=== PATIENT | female | born 1990 | race African-American/Black ===

== ENCOUNTER 2017-10-29 12:49 | Emergency (ER) | payer OTHER, SELFPAY | END 2017-10-29 13:20 | disposition home or self-care (01) | LOC: ERS 12:49 | DX: B86 Scabies (principal); D64.9 Anemia, unspecified | CPT/HCPCS: 99282 ==

== ENCOUNTER 2017-11-04 06:45 | Emergency (ER) | payer SELFPAY | END 2017-11-04 07:18 | disposition home or self-care (01) | LOC: ERS 06:45 | DX: B86 Scabies (principal); D64.9 Anemia, unspecified | CPT/HCPCS: 99282 ==

== ENCOUNTER 2018-03-11 15:54 | Emergency (ER) | payer BC, SELFPAY ==
[2018-03-11] MEDS ORDERED: Acetaminophen 500 MG TAB ONE (16:32)
--- NOTE | 2018-03-11 17:35 | CT ---
CT BRAIN WITHOUT CONTRAST: 03/11/18 HISTORY: Fall without loss of consciousness. Headache. FINDINGS: No evidence of infarct, hemorrhage, midline shift or abnormal extra-axial fluid collections are seen. The ventricular size is normal and the basilar cisterns patent. The bony calvarium is intact. The vi sualized paranasal sinuses and mastoid air cells are well aerated. IMPRESSION: No CT evidence of acute intracranial process. POS: [facility]
== END 2018-03-11 17:30 | disposition home or self-care (01) ==
LOC: ERS 15:54
DX: S09.90XA Unspecified injury of head, initial encounter (principal); D64.9 Anemia, unspecified; W01.0XXA Fall on same level from slipping, tripping and stumbling without subsequent striking against object, initial encounter
CPT/HCPCS: 70450

== ENCOUNTER 2018-09-03 12:11 | Emergency (ER) | payer BC, SELFPAY ==
[~2018-09-03 12:11] MED LIST: ISOVUE-370 76%-LOCM 1 ML ONE
[2018-09-03 13:00] LABS: #Basophils 0.1 thou/uL (0.0-0.2); #Lymphocytes 2.3 thou/uL (1.20-3.40); #Monocytes 0.3 thou/uL (0.11-0.59); #Neutrophils 4.3 thou/uL (1.40-6.50); %Basophils 1.2 % (0.0-1.0); %Eosinophils 0.5 % (0.0-10.0); %Monocytes 4.7 % (0.0-10.0); %Neutrophils 60.6 % (42.0-75.0); Hemoglobin 13.1 g/dL (12.0-16.0); Mean Corpuscular HGB CONC 31.9 g/dL (32.0-36.0); Mean Corpuscular Hemoglobin 27.4 pg (27.0-31.0); Mean Corpuscular Volume 85.9 fL (78.0-98.0); Mean Platelet Volume 7.8 fL (7.4-10.4); Platelet Count 400 thou/uL (130-400); RBC Distribution Width 15.3 % (11.5-14.5); Red Blood Cell (RBC) Count 4.78 mill/uL (4.20-5.40)
[2018-09-03 13:15] LABS: Bilirubin Negative (Negative); Blood, Urine Negative (Negative); Clarity CLEAR (Clear); Glucose, Urine (Dipstick) Negative (Negative); Leukocyte Trace (Negative); Nitrite Negative (Negative); Protein, Urine (Dipstick) Negative (Neg-Trace); Specific Gravity, Urine 1.006 (1.002-1.036); Urobilinogen 0.2 mg/dL (0.2-1.0); pH, Urine 7.5 (5.0-9.0)
[2018-09-03 13:17] LABS: ALT (SGPT) 18 U/L (8-55); AST (SGOT) 21 U/L (5-34); Albumin 4.5 g/dL (3.5-5.0); Alkaline Phosphatase 71 U/L (40-150); Anion Gap 12 mmol/L (10-20); BUN (Urea Nitrogen) 8 mg/dL (7.0-18.7); Bilirubin, Total 0.2 mg/dL (0.2-1.2); Calc. Creatinine Clearance 0 mL/min (70-130); Calcium 9.6 mg/dL (7.8-10.44); Carbon Dioxide 26 mmol/L (22-29); Chloride 104 mmol/L (98-107); Estimated GFR-MDRD Greater than 90; Globulin 3.4 g/dL (2.4-3.5); Glucose 95 mg/dL (70-105); Potassium 3.6 mmol/L (3.5-5.1); Protein, Total 7.9 g/dL (6.0-8.3); Sodium 138 mmol/L (136-145)
[2018-09-03 13:18] LABS: Bacteria/HPF None Seen HPF (None Seen); Hyaline Casts/LPF 0-3 HYALINE CAST LPF (0-3 Hyaline); RBC/HPF 0-3 HPF (0-3); Squamous Epithelial None Seen HPF (0-3); WBC/HPF 0-3 HPF (0-3)
[2018-09-03 13:21] LABS: Pregnancy Test - Urine (BHCG) Negative (Negative); Pregu Control Background? CLEAR/WHITE (CLR/WHITE); Pregu Control Bar Appear? YES (CONTROL BAR); Specific Gravity 1.006 (1.002-1.036)
[2018-09-03 13:54] LABS: Amphetamine Not Detected (NotDetected); Barbiturates Screen Not Detected (NotDetected); Benzodiazepine Screen Not Detected (NotDetected); Cocaine Metabolite Screen Not Detected (NotDetected); Medtox Reader # READER 1; Methadone Not Detected (NotDetected); Methamphetamine Not Detected (NotDetected); Opiate Screen Not Detected (NotDetected); Oxycodone Screen Not Detected (NotDetected); Phencyclidine (PCP) Not Detected (NotDetected); THC/Cannabinoid Screen Not Detected (NotDetected); Tricyclic Screen Not Detected (NotDetected)
[2018-09-03 13:55] LABS: Medtox Control Line Valid? VALID (VALID)
--- NOTE | 2018-09-03 14:49 | CT ---
CT ABDOMEN AND PELVIS WITH IV CONTRAST: History: Periumbilical abdominal pain. FINDINGS: The lung bases are clear. The liver, spleen, pancreas, adrenal glands, and kidneys are normal. No pito cified gallstones are seen. No free air, free fluid, or lymphadenopathy is noted in the abdomen or pe lvis. Normal appearing appendix is present. Uterus and ovaries and present. There is a 3 cm cyst in t he right ovary. No acute osseous abnormalities are seen. IMPRESSION: 1. No evidence of appendicitis. 2. 3 cm right ovarian cyst. POS: [facility]
== END 2018-09-03 14:40 | disposition home or self-care (01) ==
LOC: ERS 12:11
DX: N83.201 Unspecified ovarian cyst, right side (principal); F32.9 Major depressive disorder, single episode, unspecified
CPT/HCPCS: 36415; 74177; 80053; 80306; 81003; 81015; 81025; 83690; 85025; Q9966

== ENCOUNTER 2018-09-10 22:23 | Emergency (ER) | payer SELFPAY ==
[2018-09-10 23:12] LABS: Bilirubin Negative (Negative); Blood, Urine Negative (Negative); Clarity CLEAR (Clear); Glucose, Urine (Dipstick) Negative (Negative); Leukocyte Negative (Negative); Nitrite Negative (Negative); Protein, Urine (Dipstick) Negative (Neg-Trace); Urobilinogen 0.2 mg/dL (0.2-1.0)
[2018-09-10 23:13] LABS: Pregnancy Test - Urine (BHCG) Negative (Negative); Pregu Control Background? CLEAR/WHITE (CLR/WHITE); Pregu Control Bar Appear? YES (CONTROL BAR); Specific Gravity 1.002 (1.002-1.036); Specific Gravity, Urine 1.002 (1.002-1.036)
--- NOTE | 2018-09-10 23:47 | RAD ---
TWO VIEWS OF THE ABDOMEN 09/10/18 HISTORY: Chest pain, shortness of breath, abdominal pain. FINDINGS: The visualized lung bases are clear. Bowel gas pattern is nonspecific. No suspicious calcifications a re seen. Calcifications overlie the right hemipelvis likely related to phleboliths. Osseous structure s are intact. IMPRESSION: Nonspecific bowel gas pattern. POS: [facility]
== END 2018-09-10 23:58 | disposition home or self-care (01) ==
LOC: ERS 22:23
DX: F32.9 Major depressive disorder, single episode, unspecified (principal); R10.9 Unspecified abdominal pain; D50.9 Iron deficiency anemia, unspecified; D32.9 Benign neoplasm of meninges, unspecified
CPT/HCPCS: 74019; 81003; 81025; 93005

== ENCOUNTER 2019-03-11 14:53 | Outpatient (CLI) | payer OTHER ==
--- NOTE | 2019-03-11 16:28 | ULT ---
EXAM: OB ultrasound COMPARISON: None HISTORY: female patient. Evaluate anatomy, size, and dates as well as cervical length. Encounte r for supervision of other normal in second trimester. TECHNIQUE: Multiplanar grayscale and color Doppler transabdominal sonographic images are obtained. FINDINGS: There is a single intrauterine gestation in cephalic presentation. Cardiac Doppler demonstr ates heart tones with a heart rate of 160 beats per minute. The placenta is located anteriorly without evidence of placenta previa. There is an increase in amniotic fluid with an amniot ic fluid index of 21.5 centimeters. The cervical length based on transabdominal imaging measures 3.4 cm centimeters. biometry measurements: BPD 4.67 cm -- 20 weeks 1 day HC 18.1 cm -- 20 weeks 4 days AC 15.18 cm -- 20 weeks 3 days FL 3.18 cm -- 20 weeks The estimated gestational age by ultrasound is 20 weeks 2 days with an MAKEDA on07/27/2019. Gestational a ge by the last menstrual period is 20 weeks 4 days. The estimated weight by ultrasound is 338 g (12 ounces). This represents 26 percentile for feta l weight. A 4 chambered heart is visualized. The cerebellum, visualized portions of the spine, kidneys, u rinary bladder, and cord insertion demonstrate a normal sonographic appearance. There is mild prominence of the right renal pelvis, but this measures less than 4 mm. A three-vessel cord is not visualized, but there is flow on either side of the urinary bladder sugges ting a three-vessel cord.. No anomalies are seen. IMPRESSION: 1. Single intrauterine gestation in cephalic presentation with heart tones documented. Estimat ed gestational age by ultrasound is 20 weeks 2 days. 2. Estimated weight is 338 g (12 ounces). 3. Amniotic fluid index is 21.5 cm which is increased. 4. Mild prominence of the right renal pelvis, but the AP dimension measures less than 4 mm. 5. Findings related to polyhydramnios were discussed with Dr. Oliveira on 03/11/2019 at 1621 hours.
== END 2019-03-11 14:54 | disposition home or self-care (01) ==
LOC: BICULT 14:53
PROVIDERS: ATTEND Family Medicine
DX: Z34.82 Encounter for supervision of other normal pregnancy, second trimester (principal); Z3A.20 20 weeks gestation of pregnancy
CPT/HCPCS: 76805

== ENCOUNTER 2019-06-15 09:53 | Outpatient (CLI) | payer OTHER ==
--- NOTE | 2019-06-15 11:43 | ULT ---
LIMITED OB ULTRASOUND: Date: 06/15/19 HISTORY: Growth, JOANN. FINDINGS: Single, live intrauterine gestation is seen, with measurements corresponding to an estimated gestatio nal age of 32 weeks/1 day and MAKEDA at 08/09/2019. The estimate weight measures 1885 gm, or 4 lbs and 2 oz (2% by Hadlock criteria). measurements are as follows: BPD: 7.95 cm, 32 weeks/0 days HC: 29.25 cm, 32 weeks/2 days AC: 28.00 cm, 32 weeks/1 day FL: 6.15 cm, 32 weeks/0 days The heart rate measures 136 beats/minute. Placenta is anteriorly located without evidence of placenta previa. JOANN measures 14.32 cm. Cervical length measures 2.96 cm. S/D Ratios of the umbilical artery are 3.6 at the level of the placenta, 4.0 in the mid portion, and 4.1 close to the fetus. IMPRESSION: Single, live intrauterine of 32 weeks/1 day estimated gestational age and MAKEDA at 08/09/2019 . POS: [facility]
== END 2019-06-15 09:54 | disposition home or self-care (01) ==
LOC: BICULT 09:53
PROVIDERS: ATTEND Family Medicine
DX: O36.5930 Maternal care for other known or suspected poor fetal growth, third trimester, not applicable or unspecified (principal); Z3A.32 32 weeks gestation of pregnancy
CPT/HCPCS: 76815; 93975

== ENCOUNTER 2020-10-03 08:03 | Emergency (ER) | payer OTHER ==
[2020-10-03] MEDS ORDERED: Dexamethasone 10 MG/ML VIAL ONE (10:20)
== END 2020-10-03 10:30 | disposition home or self-care (01) ==
LOC: ERS 08:03
DX: J02.9 Acute pharyngitis, unspecified (principal); D50.9 Iron deficiency anemia, unspecified
CPT/HCPCS: 87081; 87430; 99283; J1100

== ENCOUNTER 2022-09-29 11:53 | Emergency (ER) | payer OTHER ==
[2022-09-29] MEDS ORDERED: Ketorolac Tromethamine 30 MG/ML VIAL ONE (12:40)
== END 2022-09-29 13:35 | disposition home or self-care (01) ==
LOC: ERS 11:53
DX: R29.898 Other symptoms and signs involving the musculoskeletal system (principal)
CPT/HCPCS: 96372; 99282; J1885